=== PATIENT | female | born 1995 | race Caucasian/White ===

== ENCOUNTER → 2018-05-18 | Outpatient (CLI) | payer BC ==
--- NOTE | 2018-05-18 17:58 | Diagnostic Imaging Report ---
Exam: Upright and supine abdominal x-ray Indication: Constipation Comparison: None Findings: Normal lung bases. Nonobstructed bowel gas pattern. Mild to moderate amount of retained stool predominantly in the right colon and sigmoid. No abnormal calcifications. Impression: Mild to moderate amount of retained stool predominantly in the right colon and sigmoid colon without obstruction. Signed by: Dr. Candida Hannah M.D. on 05/18/2018 5:55 PM
== END ==
LOC: RAD 16:09
PROVIDERS: ATTEND Internal Medicine
DX: K59.01 Slow transit constipation (principal)
CPT/HCPCS: 74019; 81025